=== PATIENT | female | born 1975 | race African-American/Black ===

== ENCOUNTER 2022-09-09 11:51 | Emergency (ER) | payer OTHER ==
[2022-09-09 12:03] VITALS: BP 181/95
[2022-09-09] MEDS ORDERED: PSEUDOEPHEDRINE 30 MG TABLET PO STA (12:05)
[2022-09-09] MEDS ORDERED: AMOX/CLAV 875 MG/125 MG TABLET PO STA (12:05)
--- NOTE | 2022-09-09 12:08 | ED Physician Documentation ---
History of Present Illness - Stated complaint Stated Complaint: FEMALE , THROAT PX,FEVER - Chief complaint Chief Complaint: Heent - History obtained from History obtained from: Patient - History of Present Illness Timing: How many days ago (2-3) Pain level max: 4 Pain level now: 4 - Additonal information Additional information: 46-year-old female presents to the emergency department with sinus congestion, sore throat and mild cough. Has a history of recurrent sinus infection. No fevers. No chills. She is scheduled to have bariatric surgery in 1 week and is scheduled to fly back to [place] tomorrow. No abdominal pain. She does state that she had a UTI a few months ago but is not having symptoms currently. Review of Systems Constitutional: denies: Fever Nose: reports: Congestion, Sinus pressure / pain Throat: reports: Sore throat Respiratory: reports: Cough GI: denies: Abdominal Pain, Nausea, Vomiting, Diarrhea Skin: denies: Rash Musculoskeletal: denies: Neck pain, Back pain Neurologic: denies: Headache PD PAST MEDICAL HISTORY - Past Medical History Past Medical History: Yes Cardiovascular: Hypertension - Present Medications Home Medications: Ambulatory Orders Medication Instructions Recorded Confirmed Amox/Clav 875/125 [Augmentin] 1 tab PO Q12H #14 tablet 09/09/22 Cetirizine HCl/Pseudoephedrine 1 each PO BID PRN #30 tab 09/09/22 [Zyrtec-D Tablet] - Allergies Allergies/Adverse Reactions: Allergies Allergy/AdvReac Type Severity Reaction Status Date / Time No Known Drug Allergies Allergy Verified 09/09/22 12:03 - Living Situation Living Arrangement: reports: At home PD ED PE NORMAL - Vitals Vital signs reviewed: Yes - General General: Alert and oriented X 3, No acute distress - HEENT HEENT: PERRL, Ears normal, Moist mucous membranes, Pharynx benign, Other (Tender to palpation across the frontal and maxillary sinuses) - Neck Neck: Supple, no meningeal sign - Cardiac Cardiac: RRR, Strong equal pulses - Respiratory Respiratory: No respiratory distress, Clear bilaterally - Derm Derm: Warm and dry - Neuro Neuro: Alert and oriented X 3 - Psych Psych: Normal mood, Normal affect Results - Vitals Vitals: Vital Signs - 24 hr 09/09/22 12:01 Temperature 36.6 C Heart Rate 94 Respiratory 12 Rate Blood Pressure 181/95 H O2 Saturation 98 Oxygen O2 Source Room air PD Medical Decision Making - ED course Complexity details: reviewed results, re-evaluated patient, considered differential, d/w patient ED course: Patient is well-appearing, nontoxic. Afebrile. No hypoxia. No respiratory distress. Has recurrent sinus infections, and is scheduled to get on an ai rplane tomorrow. Will place on decongestants and antibiotics. Patient is also scheduled for surgery in 1 week. Patient counseled regarding signs and symptoms for which I believe and urgent re-evaluation would be necessary. Patient with good understanding of and agreement to plan and is comfortable going home at this time This document was made in part using voice recognition software. While efforts are made to proofread this document, sound alike and grammatical errors may occur. Departure - Departure Disposition: 01 Home, Self Care Clinical Impression: Sinusitis Qualifiers: Sinusitis location: pansinusitis Chronicity: acute Recurrence: non-recurrent Qualified Code(s): J01.40 - Acute pansinusitis, unspecified Condition: Good Instructions: ED Sinusitis Abx Tx Follow-Up: your,doctor in 1 week [Other] Prescriptions: Amox/Clav 875/125 [Augmentin] 1 tab PO Q12H #14 tablet Cetirizine HCl/Pseudoephedrine [Zyrtec-D Tablet] 1 each PO BID PRN #30 tab PRN Reason: nasal congestion Comments: Your prescriptions were sent to [facility] in [place]. Please follow-up with your doctor for further care. Please return if you worsen. Take all antibiotics until gone. We will change out your cetirizine for Zyrtec-D to help with your congestion.
== END 2022-09-09 12:11 | disposition home or self-care (01) ==
LOC: ED 11:51
DX: J01.40 Acute pansinusitis, unspecified (principal); I10 Essential (primary) hypertension
CPT/HCPCS: 99282; 99283; A9270